=== PATIENT | female | born 1995 | race Caucasian/White ===

== ENCOUNTER 2017-07-27 12:50 | Emergency (ER) | payer OTHER ==
[~2017-07-27] VITALS: Ht 157.5 cm; Wt 65.0 kg
[2017-07-27 13:26] VITALS: BP 135/76; PULSE 86; RESP 16; TEMP 98.6; O2SAT 98
[2017-07-27] MEDS ORDERED: AUGM875T3 PO (13:46)
--- NOTE | 2017-07-27 13:50 | PD ---
HPI Chief Complaint: Cold / Flu Symptoms Time Seen by Provider: 13:38 Travel History International Travel<30 days: No Contact w/Intl Traveler<30days: No Traveled to known affect area: No History of Present Illness HPI 22-year-old female presents to the emergency room for evaluation of green nasal discharge, headaches, and sinus pressure for the past week. States she has been sick with some sort of infection over the past month. She seems to get better for a few days but then worsens again. She has been taking multiple over -the-counter medications without significant relief. She has also been using Flonase which helps her symptoms a lot. She went to [facility] and he told her that it was upper respiratory infection and bronchitis. She has not gotten any antibiotics in the past month.. She denies fever, chills, nausea, vomiting. No chronic medical conditions or daily medications. PFSH Past Medical History Medical History: Denies Significant Hx ?: Not Past Surgical History Surgical History: No Previous Surgery Social History Alcohol Use: No Tobacco Use: No Substance Use: No Allergies-Medications (Allergen,Severity, Reaction): Coded Allergies: No Known Allergies (Unverified , 07/27/17) Review of Systems Except as stated in HPI: all other systems reviewed are Neg Physical Exam Narrative GENERAL: Well-nourished, well-developed female in no acute distress. Afebrile. Ambulatory. SKIN: Focused skin assessment warm/dry. HEAD: Normocephalic. EYES: No scleral icterus. No injection or drainage. ENT: Mucosa pink and moist. Moderate erythema without significant exudates. No uvular edema. No uvular, palatal, or tonsillar deviation. Airway patent. Nasal turbinates appear normal without nasal blood, purulent drainage or septal hematoma. EARS: Bilateral pinnae and external canals appear within normal limits. Bilateral tympanic membranes without erythema, dullness or perforation. NECK: Supple, trachea midline. No JVD or lymphadenopathy. CARDIOVASCULAR: Regular rate and rhythm without murmurs, gallops, or rubs. RESPIRATORY: Breath sounds equal bilaterally. No accessory muscle use. No crackles, rales, wheezes, or rhonchi. Data Data Last Documented VS Vital Signs Date Time Temp Pulse Resp B/P (MAP) Pulse Ox O2 Delivery O2 Flow Rate FiO2 3/14/18 13:26 98.6 86 16 135/76 (86) 12 [facility] Medical Decision Making Medical Screen Exam Complete: Yes Emergency Medical Condition: Yes Medical Record Reviewed: Yes Differential Diagnosis Sinusitis, URI, pneumonia Narrative Course 22-year-old female presents to the emergency room for evaluation of sinus pressure, congestion, and green nasal discharge for the past week. She has been sick intermittently over the past month. She has not been on any antibiotics. Physical exam is reassuring. Vital signs stable. Likely bacterial sinusitis. Patient discharged with Augmentin and told to follow-up with a primary care physician or return for worsening symptoms. She understands and agrees to plan. Diagnosis Primary Impression: Bacterial sinusitis Referrals: Primary Care Physician Additional Instructions: Augmentin as directed, until gone. Follow-up with a primary care physician. Return for worsening symptoms. Med/Other Pt SpecificInfo: Prescription(s) given Scripts Amoxicillin-Clavulanate (Augmentin) 875-125 Mg Tab 1 TAB PO BID for Infection, #20 TAB 0 Refills Prov: Yaritza Wayne MD 07/27/17 Disposition: 01 DISCHARGE HOME Condition: Stable Jenniffer Uribe Jul 27, 2017 13:50
== END 2017-07-27 14:16 | disposition home or self-care (01) ==
LOC: NEPK 12:50
DX: J32.9 Chronic sinusitis, unspecified (principal); B96.89 Other specified bacterial agents as the cause of diseases classified elsewhere
CPT/HCPCS: 99283